=== PATIENT | male | born 1970 | race Two or more races ===

== ENCOUNTER 2022-04-30 19:34 | Inpatient (IN) | payer MEDICAID, OTHER ==
[~2022-04-30] VITALS: Ht 175.3 cm; Wt 74.4 kg
[2022-04-30] MEDS ORDERED: ACETAMINOPHEN 325 MG TAB PO ONE (20:27)
[2022-04-30] MEDS ORDERED: ACETAMINOPHEN 650 mg PER 20.3 mL UD PO ONE (20:30)
[2022-04-30] MEDS ORDERED: MORPHINE SULFATE 4 MG/ML SYR/VIAL IV ONE (20:30)
[2022-04-30] MEDS ORDERED: ONDANSETRON HCL 4 MG/2 ML VIAL IV ONE (20:30)
[2022-04-30] MEDS ORDERED: SODIUM CHLORIDE 0.9% 1,000 ML IV ONE (20:30)
[2022-04-30 20:33] LABS: Basophils # (auto) 0 10 ^3/uL (0-0.2); Basophils % (auto) 0.5 % (0.0-2.0); Eosinophils # (auto) 0 10 ^3/uL (0-0.8); Hemoglobin 12.4 g/dL (13.5-17.5); Lymphocytes # (auto) 1.4 10 ^3/uL (0.4-5.4); Lymphocytes % (auto) 13.6 % (10.0-50.0); Mean Corpuscular Hemoglobin 32.7 pg (28.0-32.0); Mean Corpuscular Hgb Conc. 33.6 g/dL (32.0-36.0); Mean Corpuscular Volume 97.1 fL (80.0-100.0); Monocytes # (auto) 0.6 10 ^3/uL (0-1.3); Monocytes % (auto) 5.7 % (0.0-12.0); Neutrophils # (auto) 8.2 10 ^3/uL (1.6-8.6); Neutrophils % (auto) 80.2 % (37.0-80.0); Red Blood Cells 3.81 10^6/uL (4.5-5.90); Red Cell Distribution Width 13.1 % (11.8-14.3); White Blood Cell 10.3 10^3/uL (4.4-10.8)
[2022-04-30 20:53] LABS: Albumin 3.3 g/dL (3.4-5.0); BUN/Creatinine Ratio 8.4; Calcium 8.8 mg/dL (8.5-10.1); Potassium 3.4 mmol/L (3.5-5.1)
[2022-04-30 20:56] LABS: Bilirubin, Total 0.7 mg/dL (0.2-1.0)
[2022-04-30] MEDS ORDERED: AZITHROMYCIN 500MG/ 250ML 250 ML IV ONE (22:45)
[2022-04-30] MEDS ORDERED: cefTRIAXone SOD 1,000 MG VL IV ONE (22:45)
[2022-04-30] MEDS ORDERED: ONDANSETRON HCL 4 MG/2 ML VIAL IV PRN (23:30)
[2022-04-30] MEDS ORDERED: DOCUSATE SOD 100 MG CAP PO PRN (23:30)
[2022-04-30] MEDS ORDERED: NITROGLYCERIN 0.4 MG SL TAB SL PRN (23:45)
[2022-04-30] MEDS ORDERED: MORPHINE SULFATE INJ 2 MG/ml SYRG IV PRN (23:45)
[2022-05-01] VITALS (9 sets, daily range): BP systolic 110–168; BP diastolic 68–87
[2022-05-01] MEDS: SODIUM CHLORIDE 0.9% 1,000 ML IV SCH ×2 (00:12→16:39)
[2022-05-01] MEDS: ACETAMINOPHEN 325 MG TAB PO PRN ×2 (01:52→13:49)
[2022-05-01] MEDS ORDERED: CLON0.1T PO (02:52)
[2022-05-01] MEDS ORDERED: METOPROLOL TARTRATE 25 MG TAB PO ONE (05:30)
[2022-05-01] MEDS: HYDROcodone-ACET 5/325MG TAB PO PRN ×2 (06:03→20:35)
[2022-05-01] MEDS ORDERED: AZITHROMYCIN 500MG/ 250ML 250 ML IV SCH (10:00)
[2022-05-01] MEDS: cefTRIAXone 1GM/50ML D5W 50 ML IV SCH (11:01)
[2022-05-01] MEDS: ENOXAPARIN SOD 40 MG/0.4 ML SYRINGE SC SCH (11:02)
[2022-05-01] MEDS: METOPROLOL TARTRATE 25 MG TAB PO SCH ×2 (11:02→22:59)
[2022-05-01 11:41] LABS: Hematocrit 34.9 % (41.0-53.0); Hemoglobin 11.4 g/dL (13.5-17.5); Mean Corpuscular Hemoglobin 32.2 pg (28.0-32.0); Mean Corpuscular Hgb Conc. 32.6 g/dL (32.0-36.0); Mean Corpuscular Volume 98.9 fL (80.0-100.0); Red Blood Cells 3.53 10^6/uL (4.5-5.90); Red Cell Distribution Width 13.7 % (11.8-14.3); White Blood Cell 13.5 10^3/uL (4.4-10.8)
[2022-05-01 11:48] LABS: Potassium 3.4 mmol/L (3.5-5.1)
[2022-05-01 11:49] LABS: Basophils % (manual) 0 (0.0-2.0); Blast Cells 0; Metamyelocytes % 0; Myelocytes % 0; Promyelocytes % 0; Reactive Lymphocytes 0
[2022-05-01 11:57] LABS: Albumin 2.3 g/dL (3.4-5.0); BUN/Creatinine Ratio 11.8; Bilirubin, Total 0.8 mg/dL (0.2-1.0); Calcium 8.2 mg/dL (8.5-10.1)
[2022-05-01 12:04] LABS: Band Neutrophils % (manual) 28; Eosinophils % (manual) 1 (0-7); Lymphocytes % (manual) 16 (10.0-50.0); Monocytes % (manual) 6 (0-12)
[2022-05-01] MEDS ORDERED: POTASSIUM CHL 20 Meq TABLET PO ONE (13:00)
[2022-05-01] MEDS: levoFLOXacin 500MG 100 ML IV SCH (13:48)
[2022-05-01] MEDS: IPRATROPIUM BROM 0.5 MG/2.5ML INH SOL NEB SCH (19:04)
[2022-05-01] MEDS: methylPREDNISolone SOD SUCC 125 MG/2 ML VL IV SCH (22:58)
[2022-05-02 05:00] VITALS: BP 150/84
[2022-05-02 06:17] LABS: Basophils # (auto) 0.1 10 ^3/uL (0-0.2); Basophils % (auto) 0.6 % (0.0-2.0); Eosinophils # (auto) 0.1 10 ^3/uL (0-0.8); Eosinophils % (auto) 0.4 % (0.0-7.0); Hematocrit 35.3 % (41.0-53.0); Hemoglobin 11.7 g/dL (13.5-17.5); Lymphocytes # (auto) 0.9 10 ^3/uL (0.4-5.4); Lymphocytes % (auto) 6.3 % (10.0-50.0); Mean Corpuscular Hemoglobin 32.9 pg (28.0-32.0); Mean Corpuscular Volume 99.5 fL (80.0-100.0); Monocytes # (auto) 0.4 10 ^3/uL (0-1.3); Monocytes % (auto) 2.9 % (0.0-12.0); Neutrophils # (auto) 12.7 10 ^3/uL (1.6-8.6); Neutrophils % (auto) 89.8 % (37.0-80.0); Nucleated Red Blood Cells % 0.1 %; Red Blood Cells 3.54 10^6/uL (4.5-5.90); Red Cell Distribution Width 13.7 % (11.8-14.3); White Blood Cell 14.2 10^3/uL (4.4-10.8)
[2022-05-02 06:41] LABS: Anion Gap 7 (5-15); BUN/Creatinine Ratio 15.4; Blood Urea Nitrogen 18 mg/dL (7-18); Calcium 8.5 mg/dL (8.5-10.1); Carbon Dioxide 24 mmol/L (21-32); Chloride 105 mmol/L (98-107); GFR African American 84 mL/min; GFR Non-African American 69 mL/min; Glucose 128 mg/dL (74-106); Magnesium 2.3 mg/dL (1.6-2.6); Phosphorus 2.2 mg/dL (2.5-4.90); Potassium 4.9 mmol/L (3.5-5.1); Sodium 136 mmol/L (136-145)
[2022-05-02] MEDS: IPRATROPIUM BROM 0.5 MG/2.5ML INH SOL NEB SCH ×3 (06:56→20:04)
[2022-05-02] MEDS: SODIUM CHLORIDE 0.9% 1,000 ML IV SCH (08:50)
[2022-05-02 09:00] VITALS: BP 139/59
[2022-05-02] MEDS: cefTRIAXone 1GM/50ML D5W 50 ML IV SCH (09:00)
[2022-05-02] MEDS: levoFLOXacin 500MG 100 ML IV SCH (09:31)
[2022-05-02] MEDS: METOPROLOL TARTRATE 25 MG TAB PO SCH ×2 (09:32→22:50)
[2022-05-02] MEDS: methylPREDNISolone SOD SUCC 125 MG/2 ML VL IV SCH ×2 (09:32→22:49)
[2022-05-02] MEDS: PANTOPRAZOLE 40 MG/10 ML VIAL INJ IV SCH (09:32)
[2022-05-02] MEDS: ENOXAPARIN SOD 40 MG/0.4 ML SYRINGE SC SCH (09:33)
[2022-05-02] MEDS: amLODIPine BESYLATE 5 MG TAB PO SCH (09:33)
[2022-05-02 13:00] VITALS: BP 124/89
[2022-05-02] MEDS ORDERED: AZITHROMYCIN 250 MG TAB PO ONE (16:15)
[2022-05-02 17:00] VITALS: BP 138/95
[2022-05-02 17:29] LABS: Urine Bacteria NONE SEEN /hpf (None Seen); Urine Blood Negative /uL (Negative); Urine WBC 43 /hpf (0 - 3)
[2022-05-02 22:00] VITALS: BP 126/74
[2022-05-02] MEDS: CEFEPIME 2 GM in SODIUM CHL 0.9% 50 ML IV SCH (22:49)
[2022-05-03] MEDS: SODIUM CHLORIDE 0.9% 1,000 ML IV SCH ×3 (01:38→22:45)
[2022-05-03 05:00] VITALS: BP 156/101
[2022-05-03] MEDS: CEFEPIME 2 GM in SODIUM CHL 0.9% 50 ML IV SCH ×3 (05:18→22:34)
[2022-05-03] MEDS: IPRATROPIUM BROM 0.5 MG/2.5ML INH SOL NEB SCH ×3 (06:49→18:42)
[2022-05-03 08:40] VITALS: BP 159/97
[2022-05-03] MEDS: ENOXAPARIN SOD 40 MG/0.4 ML SYRINGE SC SCH (10:00)
[2022-05-03] MEDS: PANTOPRAZOLE 40 MG/10 ML VIAL INJ IV SCH (10:00)
[2022-05-03] MEDS: METOPROLOL TARTRATE 25 MG TAB PO SCH ×2 (10:00→22:35)
[2022-05-03] MEDS: methylPREDNISolone SOD SUCC 125 MG/2 ML VL IV SCH ×2 (10:00→22:35)
[2022-05-03] MEDS: amLODIPine BESYLATE 5 MG TAB PO SCH (10:00)
[2022-05-03] MEDS: AZITHROMYCIN 250 MG TAB PO SCH (10:00)
[2022-05-03 12:40] VITALS: BP 150/92
[2022-05-03 16:40] VITALS: BP 140/89
[2022-05-03 22:00] VITALS: BP 152/88
[2022-05-03] MEDS: HYDROcodone-ACET 5/325MG TAB PO PRN (22:37)
[2022-05-04] MEDS: hydrALAZINE HCL 20 MG/ML VL IV PRN ×2 (02:26→17:48)
[2022-05-04 05:00] VITALS: BP 155/95
[2022-05-04] MEDS: IPRATROPIUM BROM 0.5 MG/2.5ML INH SOL NEB SCH ×3 (06:02→18:24)
[2022-05-04] MEDS: CEFEPIME 2 GM in SODIUM CHL 0.9% 50 ML IV SCH ×3 (06:20→22:00)
[2022-05-04 06:29] LABS: INR 1.05 (0.9-1.15)
[2022-05-04 06:39] LABS: BUN/Creatinine Ratio 27.7; Calcium 8.9 mg/dL (8.5-10.1); Potassium 4.4 mmol/L (3.5-5.1)
[2022-05-04 09:00] VITALS: BP 158/126
[2022-05-04] MEDS: PANTOPRAZOLE 40 MG/10 ML VIAL INJ IV SCH (10:38)
[2022-05-04] MEDS: methylPREDNISolone SOD SUCC 125 MG/2 ML VL IV SCH ×2 (10:38→22:00)
[2022-05-04] MEDS: ENOXAPARIN SOD 40 MG/0.4 ML SYRINGE SC SCH (10:38)
[2022-05-04] MEDS: METOPROLOL TARTRATE 25 MG TAB PO SCH ×2 (10:39→22:00)
[2022-05-04] MEDS: amLODIPine BESYLATE 5 MG TAB PO SCH (10:39)
[2022-05-04] MEDS: AZITHROMYCIN 250 MG TAB PO SCH (10:40)
[2022-05-04 10:48] VITALS: BP 158/126
[2022-05-04 13:00] VITALS: BP 171/109
[2022-05-04 17:00] VITALS: BP 157/94
[2022-05-04 22:00] VITALS: BP 156/103
[2022-05-05] MEDS: hydrALAZINE HCL 20 MG/ML VL IV PRN ×2 (00:29→06:23)
[2022-05-05] MEDS: SODIUM CHLORIDE 0.9% 1,000 ML IV SCH ×3 (02:16→22:00)
[2022-05-05] MEDS: HYDROcodone-ACET 5/325MG TAB PO PRN (04:53)
[2022-05-05] MEDS: CEFEPIME 2 GM in SODIUM CHL 0.9% 50 ML IV SCH ×3 (05:04→22:25)
[2022-05-05 05:48] VITALS: BP 167/100
[2022-05-05 06:30] LABS: Hematocrit 35.5 % (41.0-53.0); Mean Corpuscular Hgb Conc. 33.7 g/dL (32.0-36.0); Mean Corpuscular Volume 97.9 fL (80.0-100.0); Red Blood Cells 3.63 10^6/uL (4.5-5.90); Red Cell Distribution Width 13.8 % (11.8-14.3); White Blood Cell 12.2 10^3/uL (4.4-10.8)
[2022-05-05 06:40] VITALS: BP 144/96
[2022-05-05 06:44] LABS: Basophils % (manual) 0 (0.0-2.0); Blast Cells 0; Eosinophils % (manual) 0 (0-7); Myelocytes % 0; Promyelocytes % 0; Reactive Lymphocytes 0
[2022-05-05 06:48] LABS: Albumin 2.3 g/dL (3.4-5.0); BUN/Creatinine Ratio 23.8; Bilirubin, Total 0.5 mg/dL (0.2-1.0); Magnesium 2.2 mg/dL (1.6-2.6); Phosphorus 3.9 mg/dL (2.5-4.90); Total Protein 7.2 g/dL (6.4-8.2)
[2022-05-05] MEDS: IPRATROPIUM BROM 0.5 MG/2.5ML INH SOL NEB SCH ×3 (06:49→18:46)
[2022-05-05 07:02] LABS: Band Neutrophils % (manual) 12; Lymphocytes % (manual) 9 (10.0-50.0); Metamyelocytes % 1; Monocytes % (manual) 4 (0-12)
[2022-05-05] MEDS: ACETAMINOPHEN 325 MG TAB PO PRN (07:06)
[2022-05-05 09:00] VITALS: BP 150/96
[2022-05-05] MEDS: PANTOPRAZOLE 40 MG/10 ML VIAL INJ IV SCH (09:57)
[2022-05-05] MEDS: methylPREDNISolone SOD SUCC 125 MG/2 ML VL IV SCH ×2 (09:57→22:25)
[2022-05-05] MEDS: METOPROLOL TARTRATE 25 MG TAB PO SCH ×2 (09:58→22:26)
[2022-05-05] MEDS: AZITHROMYCIN 250 MG TAB PO SCH (09:59)
[2022-05-05] MEDS: amLODIPine BESYLATE 5 MG TAB PO SCH (09:59)
[2022-05-05] MEDS: ENOXAPARIN SOD 40 MG/0.4 ML SYRINGE SC SCH (10:00)
[2022-05-05] MEDS: NICOTINE 14 MG/24HR TOPICAL PATCH TD SCH (10:44)
[2022-05-05] MEDS ORDERED: LIDOCAINE HCL 2% TOP JELLY 5ML TOP ONE (11:56)
[2022-05-05] MEDS ORDERED: BENZOCAINE (DENTAL) 20 % SPRAY 60ML MT ONE (12:33)
[2022-05-05] MEDS: MIDAZOLAM HCL 5 MG/ML-1ML VIAL ONE ×5 (12:35→12:49)
[2022-05-05] MEDS: fentaNYL CITRATE 100 MCG/2 ML VL ONE ×3 (12:35→12:49)
[2022-05-05 13:00] VITALS: BP 152/87
[2022-05-05] MEDS ORDERED: SODIUM CHLORIDE LOCK 10 ML ONE (13:51)
[2022-05-05] MEDS ORDERED: MIDAZOLAM HCL 5 MG/ML-1ML VIAL ONE (13:52)
[2022-05-05] MEDS ORDERED: LIDOCAINE 2%HCL (LOCAL ANESTH.) INJ 20ML MDV ONE (13:53)
[2022-05-05 17:00] VITALS: BP 137/75
[2022-05-05] MEDS: NYSTATIN (MOUTH-THROAT) 500,000 UNITS/5 ML SUSP MT SCH ×2 (18:33→22:25)
[2022-05-05 22:00] VITALS: BP 146/91
[2022-05-06 05:00] VITALS: BP 135/83
[2022-05-06] MEDS: NYSTATIN (MOUTH-THROAT) 500,000 UNITS/5 ML SUSP MT SCH ×2 (06:05→12:00)
[2022-05-06] MEDS: CEFEPIME 2 GM in SODIUM CHL 0.9% 50 ML IV SCH (06:05)
[2022-05-06] MEDS: IPRATROPIUM BROM 0.5 MG/2.5ML INH SOL NEB SCH (06:33)
[2022-05-06 09:00] VITALS: BP 134/89
[2022-05-06] MEDS: PANTOPRAZOLE 40 MG/10 ML VIAL INJ IV SCH (10:24)
[2022-05-06] MEDS: methylPREDNISolone SOD SUCC 125 MG/2 ML VL IV SCH (10:24)
[2022-05-06] MEDS: ENOXAPARIN SOD 40 MG/0.4 ML SYRINGE SC SCH (10:25)
[2022-05-06] MEDS: NICOTINE 14 MG/24HR TOPICAL PATCH TD SCH (10:25)
[2022-05-06] MEDS: AZITHROMYCIN 250 MG TAB PO SCH (10:26)
[2022-05-06] MEDS: amLODIPine BESYLATE 5 MG TAB PO SCH (10:27)
[2022-05-06] MEDS: METOPROLOL TARTRATE 25 MG TAB PO SCH (10:27)
[2022-05-06] MEDS ORDERED: LEVO750T64 PO (11:49)
[2022-05-06] MEDS ORDERED: PRED20TA2 PO (11:49)
== END 2022-05-06 11:51 | disposition left against medical advice (07) | DRG 720 ==
LOC: ER 19:34 → EAST 23:31
PROVIDERS: ADMIT Nurse Practitioner Family; ATTEND Nurse Practitioner
PROC: 0B988ZZ Drainage of Left Upper Lobe Bronchus, Via Natural or Artificial Opening Endoscopic (ICD-10-PCS; 2022-05-05)
PROC: 0B9B8ZZ Drainage of Left Lower Lobe Bronchus, Via Natural or Artificial Opening Endoscopic (ICD-10-PCS; principal; 2022-05-05 13:30)
DX: A41.9 Sepsis, unspecified organism (principal); J96.01 Acute respiratory failure with hypoxia; N17.0 Acute kidney failure with tubular necrosis; J18.9 Pneumonia, unspecified organism; J47.0 Bronchiectasis with acute lower respiratory infection; E87.6 Hypokalemia; I10 Essential (primary) hypertension; Z53.29 Procedure and treatment not carried out because of patient's decision for other reasons; Z20.822 Contact with and (suspected) exposure to COVID-19; J43.9 Emphysema, unspecified; F17.210 Nicotine dependence, cigarettes, uncomplicated; Z82.49 Family history of ischemic heart disease and other diseases of the circulatory system; Z82.5 Family history of asthma and other chronic lower respiratory diseases; Z59.00 Homelessness unspecified
CPT/HCPCS: 36415; 71045; 71250; 80048; 80053; 81001; 83605; 83615; 83735; 84100; 85007; 85025; 85027; 85610; 86592; 86701; 86703; 86850; 86900; 86901; 87040; 87070; 87077; 87081; 87186; 87205; 87278; 93005; 93306; 94640; 96361; 96374; 96375; C9113; G0378; J0696; J1956; J2250; J2405